=== PATIENT | male | born 1940 | race Caucasian/White ===

== ENCOUNTER 2019-01-07 11:00 | Day surgery (SDC) | payer MEDICARE, OTHER ==
[2019-01-07] MEDS ORDERED: PROPOFOL 10 MG/ML VIAL IV ONE (11:01)
[2019-01-07] MEDS ORDERED: LIDOCAINE 2% MDV (20MG/ML) 20ML VIAL IV ONE (11:01)
--- NOTE | 2019-01-08 08:50 | Operative Note ---
OPERATION: COLONOSCOPY with cold snare and cold forceps polypectomy and hemoclip application. PREOPERATIVE DIAGNOSIS: Hematochezia, questionable melena history. POSTOPERATIVE DIAGNOSES: 1. Sigmoid diverticulosis. 2. Colon polyps. 3. Fair prep at best. PREPARATION QUALITY: Fair at best. ESTIMATED BLOOD LOSS: Minimum. SPECIMENS: Ascending colon, transverse colon, descending colon, and sigmoid colon polyps. COMPLICATIONS: None apparent. PROCEDURE: After informed consent was obtained from the patient, he was placed in the left lateral decubitus position in the endoscopy suite, sedated and monitored by the department of anesthesia. Digital rectal exam was unremarkable. A well-lubricated [id number] colonoscope was inserted into the rectum and advanced to the cecum. Preparation quality was fair at best. The cecum and cecal bulb were unremarkable as was the ileocecal valve. In the ascending colon, there were 3 polyps, one diminutive removed with a cold forceps, one was approximately 5 mm removed with a cold snare, and the other approximately 1.0 cm and removed in piecemeal fashion with a cold snare. Two hemoclips were applied to the 1 cm polypectomy site. Minimal bleeding was noted at that site and the rest of the sites. In the transverse colon, there was another diminutive polyp removed with a cold forceps. The descending colon also revealed a diminutive polyp removed with a cold forceps. In the sigmoid colon, there was a 6-7 mm sessile polyp removed with a cold snare and a cold forceps. Minimal bleeding was noted. There was noted to be moderate diverticular change in the sigmoid colon. Numerous areas were lavaged and fluid and stool removed. J-turn views and forward views of the rectum and anorectum were unremarkable. The endoscope was straightened, the rectal ampulla deflated, and the endoscope was removed. RECOMMENDATIONS: The patient should resume his medications and diet. He should undergo repeat exam in 3 years provided his health will allow but at that point, he would be 81 and certainly may very well decide not to pursue colonoscopy at that time. As always, thank you for allowing me to participate in the healthcare of your patients. CC: DO MARGIE Delaney
== END 2019-01-07 13:21 | disposition home or self-care (01) ==
LOC: HOP 11:00
PROVIDERS: ATTEND Internal Medicine Gastroenterology
DX: K92.1 Melena (principal); D12.2 Benign neoplasm of ascending colon; D12.5 Benign neoplasm of sigmoid colon; D12.3 Benign neoplasm of transverse colon; K63.5 Polyp of colon; K57.30 Diverticulosis of large intestine without perforation or abscess without bleeding; I10 Essential (primary) hypertension; E78.00 Pure hypercholesterolemia, unspecified; E11.9 Type 2 diabetes mellitus without complications

== ENCOUNTER 2019-02-27 01:47 | Emergency (ER) | payer MEDICARE, OTHER ==
[2019-02-27] MEDS ORDERED: DIAZEPAM 5 MG TABLET PO ONE (01:59)
[2019-02-27] MEDS ORDERED: IBUPROFEN 600 MG TABLET PO ONE (01:59)
--- NOTE | 2019-02-27 02:06 | Emergency Department Record ---
History of Present Illness - General Chief complaint: Pain Stated complaint: LEFT SHOULDER PAIN Time Seen by Provider: 02/27/19 01:49 Source: Patient Mode of Arrival: Ambulatory Limitations: No limitations - History of Present Illness Initial comments: 78 yo male presents to ED for evaluation of left sided scapular pain that began yesterday, reports pain has worsened since yesterday to this evening. Patient denies specific injury, denies fevers, chills, or previous surgery to the affected area. Patient reports taking Tylenol for his symptoms without relief. MD Complaint: Other Onset/Timin -: Days(s) Location: Left History of Same: No -: Yes Myalgia Quality: Aching Consistency: Constant Improves with: Nothing Worsens with: Other (Movement of the left shoulder) Associated Symptoms: Denies other symptoms - Related Data Home Medications Medication Instructions Recorded Confirmed Last Taken Gabapentin [Neurontin] 100 mg PO TID 02/27/19 02/27/19 Unknown Glipizide 5 mg PO DAILY 02/27/19 02/27/19 Unknown Metoprolol Tartrate 25 mg PO BID 02/27/19 02/27/19 Unknown Rosuvastatin Calcium [Crestor] 10 mg PO DAILY 02/27/19 02/27/19 Unknown Previous Rx's Medication Instructions Recorded Diazepam [Valium] 5 mg PO Q8H PRN #15 tab 02/27/19 Allergies Allergy/AdvReac Type Severity Reaction Status Date / Time amiodarone AdvReac VOMITING Verified 02/27/19 01:53 shellfish derived AdvReac VOMITING Verified 02/27/19 01:53 Travel Screening - Travel/Exposure Within Last 30 Days Have you traveled within the last 30 days?: No Review of Systems Constitutional: Denies: Chills, Fever, Malaise, Night sweats Eyes: Denies: Eye discharge, Eye pain ENT: Denies: Congestion, Ear pain, Epistaxis Respiratory: Denies: Cough, Dyspnea Cardiovascular: Denies: Chest pain, Dyspnea on exertion Endocrine: Denies: Fatigue, Heat or cold intolerance Gastrointestinal: Denies: Abdominal pain, Nausea, Vomiting Genitourinary: Denies: Incontinence, Retention Musculoskeletal: Reports: Back pain, Myalgia. Denies: Arthralgia Skin: Denies: Bruising, Change in color Neurological: Denies: Abnormal gait, Confusion, Headache, Seizure Psychiatric: Denies: Anxiety Hematological/Lymphatic: Denies: Anemia, Blood Clots Past Medical History - SOCIAL HISTORY Smoking Status: Never smoker Alcohol Use: None Drug Use: None - RESPIRATORY Hx Respiratory Disorders: Yes Hx Sleep Apnea: Yes - CARDIOVASCULAR Hx Cardio Disorders: Yes Hx Abnormal EKG: Yes Hx Cardiac Cath: Yes Hx Chest Pain: Yes Hx Hypertension: Yes Comment:: high cholesterol - NEURO Hx Neuro Disorders: Yes Hx Headaches: Yes - GI Hx GI Disorders: Yes Hx Reflux: Yes - Hx Genitourinary Disorders: Yes Hx Prostate Problems: Yes (in past had turp) - ENDOCRINE Hx Endocrine Disorders: No Hx Diabetes: No - MUSCULOSKELETAL Hx Musculoskeletal Disorders: Yes Hx Arthritis: Yes Hx Back Injury: Yes - PSYCH Hx Psych Problems: No Hx Anxiety: No Hx Behavior Problems: No Hx Depression: No Hx Emotional Abuse: No Hx Sexual Abuse: No Hx Suicide Attempt: No - HEMATOLOGY/ONCOLOGY Hx Hematology/Oncology Disorders: No Hx Anemia: No Hx Blood Transfusions: No Family Medical History Any Significant Family History?: Yes Hx Cancer: Mother Hx Diabetes: Mother Hx Heart Disease: Father Physical Exam - General General Appearance: Alert, Oriented x3, Cooperative, Mild distress Limitations: No limitations - Head Head exam: Atraumatic, Normocephalic, Normal inspection Head exam detail: negative: Abrasion, Contusion, Spencer's sign, General tenderness, Hematoma, Laceration - Eye Eye exam: Normal appearance. negative: Conjunctival injection, Periorbital swelling, Periorbital tenderness, Scleral icterus - ENT Ear exam: negative: Auricular hematoma, Auricular trauma Nasal Exam: negative: Active bleeding, Discharge, Dried blood, Foreign body Mouth exam: negative: Drooling, Laceration, Muffled voice, Tongue elevation - Neck Neck exam: Normal inspection. negative: Meningismus, Tenderness - Respiratory Respiratory exam: Normal lung sounds bilaterally. negative: Rales, Respiratory distress, Rhonchi, Stridor - Cardiovascular Cardiovascular Exam: Regular rate, Normal rhythm, Normal heart sounds - GI/Abdominal GI/Abdominal exam: Soft. negative: Rebound, Rigid, Tenderness - Rectal Rectal exam: Deferred - exam: Deferred - Extremities Extremities exam: Normal inspection. negative: Pedal edema, Tenderness - Back Back exam: Reports: Paraspinal tenderness (TTP over the rhomboid/left paraveterbral muscles on examination, pain symptoms are 100% reproducible woith palpation on examination.). Denies: CVA tenderness (R), CVA tenderness (L) - Neurological Neurological exam: Alert, Normal gait, Oriented X3 - Psychiatric Psychiatric exam: Normal affect, Normal mood - Skin Skin exam: Normal color. negative: Abrasion Type of lesion: negative: abrasion Course - Reevaluation(s) Reevaluation #1: 02/27/19 02:53 Patient reassessed, reports improvement in his pain symptoms. Patient's symptoms appear c/w myofascial strain to the left rhomboid region. Patient appears stable for discharge with Valium as directed. Disposition Disposition: Discharge Clinical Impression: Acute myofascial strain Disposition: Home, Self-Care Condition: (2) Stable Instructions: Musculoskeletal Pain (ED) Additional Instructions: Return to ED if your symptoms worsen or if you have any concerns. Valium, Tylenol as directed. Follow-up with your family doctor in 3-5 days as directed. Prescriptions: Diazepam [Valium] 5 mg PO Q8H PRN #15 tab PRN Reason: Pain - Mod To Severe (5-10) Forms: Patient Portal Access Time of Disposition: 02:54 Quality - Quality Measures Quality Measures: N/A - Blood Pressure Screening Does Patient Have Any of the Following: Active Dx of HTN Blood Pressure Classification: Hypertensive Reading Systolic Measurement: 200 Diastolic Measurement: 117 Screening for High Blood Pressure: Patient Exclusion, Hx of HTN [G9744]
[2019-02-27] MEDS ORDERED: LIDOCAINE 5% PATCH TOP ONE (02:52)
== END 2019-02-27 03:00 | disposition home or self-care (01) ==
LOC: ER 01:47
DX: S46.811A Strain of other muscles, fascia and tendons at shoulder and upper arm level, right arm, initial encounter (principal); M25.512 Pain in left shoulder; I10 Essential (primary) hypertension; X58.XXXA Exposure to other specified factors, initial encounter
CPT/HCPCS: 99282

== ENCOUNTER 2019-05-22 17:45 | Emergency (ER) | payer MEDICARE, OTHER ==
--- NOTE | 2019-05-22 18:36 | Emergency Department Record ---
History of Present Illness - General Chief Complaint: Cough Stated Complaint: LITTLE COUGH/SPITTING UP BLOOD Time Seen by Provider: 05/22/19 18:15 Source: Patient Mode of Arrival: Ambulatory Limitations: No limitations - History of Present Illness Initial Comments: The patient is here due to being unable to swallow for 6 hours. He was eating lunch when he felt something get caught in his esophagus. Since he has been unable to swallow his saliva or any fluids. There is no pain, SOB, KEVIN, or fever. The patient states he has had similar problems in the past but always has been able to get the food to go down. He has never had an EGD. MD Complaint: Other Onset/Timin -: Days(s) Severity: Moderate - Related Data Home Medications Medication Instructions Recorded Confirmed Last Taken Cyclobenzaprine HCl [Flexeril] 10 mg PO TID PRN 05/22/19 05/22/19 1 Day Ago ~05/21/19 Tramadol HCl 50 mg PO Q8H PRN 05/22/19 05/22/19 1 Day Ago ~05/21/19 Allergies Allergy/AdvReac Type Severity Reaction Status Date / Time amiodarone AdvReac VOMITING Verified 05/22/19 18:14 shellfish derived AdvReac VOMITING Verified 05/22/19 18:14 Travel Screening - Travel/Exposure Within Last 30 Days Have you traveled within the last 30 days?: No - Travel/Exposure Within Last Year Have you traveled outside the [place] in the last year?: No - Additonal Travel Details Have you been exposed to anyone with a communicable illness?: No - Travel Symptoms Symptom Screening: None Review of Systems Constitutional: Denies: Chills, Fever Eyes: Denies: Eye discharge ENT: Denies: Congestion Respiratory: Denies: Cough, Dyspnea Past Medical History - SOCIAL HISTORY Smoking Status: Never smoker Alcohol Use: Rare Drug Use: None - RESPIRATORY Hx Respiratory Disorders: Yes Hx Sleep Apnea: Yes - CARDIOVASCULAR Hx Cardio Disorders: Yes Hx Abnormal EKG: Yes Hx Cardiac Cath: Yes Hx Chest Pain: Yes Hx Hypertension: Yes Comment:: high cholesterol - NEURO Hx Neuro Disorders: Yes Hx Headaches: Yes - GI Hx GI Disorders: Yes Hx Reflux: Yes - Hx Genitourinary Disorders: Yes Hx Prostate Problems: Yes (in past had turp) - ENDOCRINE Hx Endocrine Disorders: No Hx Diabetes: No - MUSCULOSKELETAL Hx Musculoskeletal Disorders: Yes Hx Arthritis: Yes Hx Back Injury: Yes - PSYCH Hx Psych Problems: No Hx Anxiety: No Hx Behavior Problems: No Hx Depression: No Hx Emotional Abuse: No Hx Sexual Abuse: No Hx Suicide Attempt: No - HEMATOLOGY/ONCOLOGY Hx Hematology/Oncology Disorders: No Hx Anemia: No Hx Blood Transfusions: No Family Medical History Any Significant Family History?: Yes Hx Cancer: Mother Hx Diabetes: Mother Hx Heart Disease: Father Physical Exam - General General Appearance: Alert, Oriented x3, Cooperative, No acute distress - Head Head exam: Atraumatic, Normocephalic - Eye Eye exam: Normal appearance, PERRL - ENT Throat exam: Normal inspection. negative: Tonsillar erythema, Tonsillar exudate - Neck Neck exam: Normal inspection, Full ROM. negative: Tenderness - Respiratory Respiratory exam: Normal lung sounds bilaterally. negative: Respiratory distress - Cardiovascular Cardiovascular Exam: Regular rate, Normal rhythm, Normal heart sounds - GI/Abdominal GI/Abdominal exam: Soft, Normal bowel sounds. negative: Tenderness - Extremities Extremities exam: Normal inspection, Full ROM, Normal capillary refill. negative: Tenderness - Neurological Neurological exam: Alert, Normal gait. negative: Abnormal gait, Motor sensory deficit - Skin Skin exam: negative: Rash Course Vital Signs 05/22/19 18:07 Temperature 98.8 F Pulse Rate 62 Respiratory 16 Rate Blood Pressure 183/96 Pulse Ox 99 - Reevaluation(s) Reevaluation #1: I did give the patient water to drink that clearly quickly came back up. The patient definitely has something stuck in his esophagus and would like to go to [facility] for treatment. I then did discuss the case with Dr. Higginbotham in the ER and he did accept the patient in an ER to ER transfer. 05/22/19 18:39 Medical Decision Making - Data Complexity MDM Data: X-Ray Ordered and/or Reviewed - Lab Data Result diagrams: 05/22/19 18:24 05/22/19 18:24 - Radiology Data Radiology results: Report reviewed (CXR: Neg for any acute process.) Disposition Disposition: Transfer Clinical Impression: Esophageal foreign body Qualifiers: Encounter type: initial encounter Qualified Code(s): T18.108A - Unspecified foreign body in esophagus causing other injury, initial encounter Disposition: Acute Care Hospital Transfer Transfer To: [facility] Reason For Transfer: GI Accepting Physician: Breckner Time Discussed w/Accepting Physician: 18:41 Condition: (2) Stable Instructions: Esophageal Foreign Body (ED) Additional Instructions: Please proceed directly to the ER at [facility] for further treatment. Do not have ANYTHING to eat or drink. Forms: Patient Portal Access Time of Disposition: 18:41 Quality - Quality Measures Quality Measures: N/A - Blood Pressure Screening View Details: Yes Does Patient Have Any of the Following: Active Dx of HTN Blood Pressure Classification: Hypertensive Reading Systolic Measurement: 183 Diastolic Measurement: 96 Screening for High Blood Pressure: Patient Exclusion, Hx of HTN [G9744]
--- NOTE | 2019-05-24 21:43 | RADIOLOGY REPORT ---
EXAM: CHEST 2 VIEWS HISTORY: COUGH. COMPARISON: 02/10/15. TECHNIQUE: Frontal and lateral. FINDINGS: Lungs remain hyperinflated. Interstitial and patchy opacifications of the bases appear similar to the prior examination. A prominent cardiac fat pad continues on the right. No new lung opacifications, pleural fluid, or pneumothorax evidence. Head and neck tissues obscure portions of the lung apices bilaterally. Heart size appears upper limits normal without change. Hilar and mediastinal borders appear stable with postsurgical change, atherosclerosis of a tortuous thoracic aorta. Bones appear osteopenic. No visualized rib lesions. Mild spurring of the spine. IMPRESSION: NO ACUTE CHANGE EVIDENT RADIOGRAPHICALLY. CONTINUING FINDINGS SUGGESTING COPD. CHRONIC-APPEARING BIBASILAR OPACIFICATIONS. The ER physician was notified by voice clip. JOB NUMBER: [id number] MTDD
== END 2019-05-22 19:00 | disposition short-term general hospital (02) ==
LOC: ER 17:45
DX: T18.108A Unspecified foreign body in esophagus causing other injury, initial encounter (principal); R13.10 Dysphagia, unspecified; R05 Cough; I10 Essential (primary) hypertension
CPT/HCPCS: 71046; 99285